=== PATIENT | male | born 1960 | race Caucasian/White ===

== ENCOUNTER 2018-10-05 13:19 | Emergency (ER) | payer BC ==
[2018-10-05 13:50] VITALS: BP 153/101
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
== END 2018-10-05 14:34 | disposition home or self-care (01) ==
LOC: UCEAST 13:19
DX: J40 Bronchitis, not specified as acute or chronic (principal); J32.9 Chronic sinusitis, unspecified; I10 Essential (primary) hypertension; Z79.899 Other long term (current) drug therapy
CPT/HCPCS: 99212; G0463